=== PATIENT | male | born 1950 | race Caucasian/White ===

== ENCOUNTER → 2016-05-04 | Outpatient (CLI) | payer OTHER ==
[~2016-05-04] MED LIST: ASCO100061 PO; ASPCH81X PO; CHOLTAB3 PO; CIPR-255 PO; CRG3125 PO; CYAN100T PO; GLC500 PO; GLCSR5 PO; LPT40 PO; LSN40 PO; MTRCR45 TOP; MULT-506 PO; OMEG10007 PO
--- NOTE | 2016-05-05 06:48 | SPLIT NIGHT TECHNICIAN REPORT ---
[facility] Split Night Polysomnogram - Hot Saw Helper Report Study date: 05/04/2016 Referring Physician: DR. RODRIGUEZ Name: CHASE TORRES Hot Saw Helper: Britney Sims [facility]. Date of : 1950 Height: 65 years, Height 5' 10.7" Sex: Male Weight: 249 lbs Age: 65 Neck Circum: 18 in BMI: Medications: 35.02 ASPIRIN 81 MG, ATORVASTATIN 40 MG, CARVEDILOL 3.125 MG, CENTRUM SILVER, CHLORTHALIDONE 25 MG, FISH OIL, GLIPIZIDE 5 MG, LISINOPRIL 40 MG, METFORMIN 500 MG, PROSTATE TABS, VICTOZA 18 MG/3 ML Patient History 65 yr-old male here for a baseline/split study. He has had previous sleep testing. He was diagnosed with NGUYỄN and wore CPAP treatment on and off but had some trouble tolerating it. He is back to assess his NGUYỄN and get reinstated with CPAP. CPAP will be started once his AHI exceeds 5 after 2 hours of sleep (per H&P) He took a one-time dose of Zolpidem for the study. The test was started on room air. ETCO2 testing was not utilized during this study. Room 3 Parameters Monitored NPSG: E1-M2, E2-M1, Fp1-M2, Fp2-M1, F3-M2, F4-M2, F4-M1, C3-M2, C4-M2, C4-M1, O1-M2, O2-M2, O2-M1, T3-M2, T4-M1, P3-M2, P4-M1, CHIN1, CHIN2, HR, EKG, Legs, PFLOW, SNOR, FLOW, CFLOW, Tidal Volume, THOR, ABDO, SpO2, PLTH, CPRESS, ETCO2 Wave, ETCO2, pH SLEEP SUMMARY DATA DIAGNOSTIC TREATMENT Lights Out: 10:39:19 PM 1:31:19 AM Lights On: 1:21:49 AM 5:37:49 AM Total Recording Time (TRT): 162.5 min. 246.5 min. Total Sleep Time (TST): 126.5 min. 141.0 min. NREM Time: 126.5 min. 118.0 min. REM Time: 0.0 min. 23.0 min. Sleep Period Time (SPT): 135.5 min. 145.5 min. Sleep Efficiency (SE): 78 % 57 % Sleep Latency: 27.0 min. 87.0 min. Arousal Index: 19.0 9.4 PAP Treatment Levels: 4, 6, 7 * Optimal Pressure(s) SLEEP STAGING DATA DIAGNOSTIC TREATMENT Duration (min) TST % Duration (min) TST % Stage Wake: 36.0 min. -- 105.5 min. -- WASO: 9.0 min. -- 4.5 min. -- NREM: 126.5 min. 100 % 118.0 min. 84 % Stage N1: 15.5 min. 12 % 17.5 min. 12 % Stage N2: 90.0 min. 71 % 97.0 min. 69 % Stage N3: 21.0 min. 17 % 3.5 min. 2 % REM: 0.0 min. 0 % 23.0 min. 16 % POSITIONAL DATA Event Count Index Event Count Index Supine: 28 70.4 0 0.0 Supine NREM: 28 70.4 0 0.0 Supine REM: N/A N/A N/A N/A Non-Supine: 9 4.6 0 0.0 Non-Supine NREM: 9 4.6 0 0.0 Non-Supine REM: N/A N/A 0 0.0 AROUSAL SUMMARY DATA: Event Count Index Event Count Index Apnea Arousals: 0 0.5 0 0.0 Hypopnea Arousals: 10 4.7 0 0.0 Snore Arousals: 0 0.0 6 2.6 PLM Arousals: 14 6.6 7 3.0 Non-Specific Arousals: 11 5.2 8 3.4 Total Arousals: 40 19.0 22 9.4 MYOCLONUS (PLM) Event Count Index Event Count Index PLM: 159 75.4 66 28.1 PLM AROUSAL: 14 6.6 7 3.0 PLM W/O AROUSAL 159 75.4 59 25.1 PLM W/RESP EVENT 22 0.0 0 0.0 MYOCLONUS (PLM) Event Count Index Event Count Index LM: 3 22.3 6 2.6 LM AROUSAL: 3 1.4 1 0.4 LM W/O AROUSAL LM W/RESP EVENT LM NON SPECIFIC 163 77.3 64 27.2 HEART RATE DATA DIAGNOSTIC TREATMENT Sleep (bpm): 91 91 REM (bpm): N/A 88 NREM (bpm): 89 87 Tachycardia Count: 0 0 Tachycardia Duration: 0.00 0 Bradycardia Count: 0 0 Bradycardia Duration: 0.00 0 DIAGNOSTIC PORTION TREATMENT PORTION RESPIRATORY DATA Event Count Index Event Count Index AHI: -- 16.6 -- 0.0 RDI: -- 17.5 -- 0 Obstructive Apnea: 1 0.5 0 0.0 Central Apnea: 0 0.0 0 0.0 Mixed Apnea: 0 0.0 0 0.0 Hypopnea: 34 16.1 0 0.0 RERA: 2 0.9 0 0.0 Total Apneas: 1 0.5 0 0.0 RESPIRATORY DATA REM NREM SLEEP REM NREM SLEEP Supine Position: Obstructive Apneas: N/A 1 1 N/A 0 0 Central Apneas: N/A 0 0 N/A 0 0 Mixed Apneas: N/A 0 0 N/A 0 0 Hypopneas: N/A 26 26 N/A 0 0 RERA N/A 1 1 N/A 0 0 Total Supine Events: N/A 28 28 N/A 0 0 Supine AHI: N/A 70.4 70.4 N/A 0.0 0.0 Supine RDI: N/A 73.0 73.0 N/A 0.0 0.0 REM NREM SLEEP REM NREM SLEEP Non-Supine Position: Obstructive Apneas: N/A 0 0 0 0 0 Central Apneas: N/A 0 0 0 0 0 Mixed Apneas: N/A 0 0 0 0 0 Hypopneas: N/A 8 8 0 0 0 RERA N/A 1 1 0 0 0 Total Supine Events: N/A 9 9 0 0 0 Supine AHI: N/A 4.6 4.6 0.0 0.0 0.0 Supine RDI: N/A 5.2 5.2 0.0 0.0 0.0 OXYGEN DESTAURATION DATA: Event Count Index Event Count Index REM Desaturations: N/A N/A 0 0.0 NREM Desaturations: 42 19.9 4 2.0 SNORE DATA DIAGNOSTIC TREATMENT Snore Time: 26.1 2:58:19 AM Snore TST%: 17 6 Snore Arousal Count: 0 6 Snore Arousal Index: 0.0 2.6 Desaturation Event Summary: Minimum %SpO2 Event Count Mean/Min/Max Duration(sec.) Desaturation Index % Time In Bed > 90 72 24.4 / 4.3 / 59.8 50.0 21.9 86 - 90 29 19.6 / 4.0 / 52.0 5.9 75.2 81 - 85 2 13.6 / 10.8 / 16.5 11.2 2.7 76 - 80 0 N/A 0.0 0.1 71 - 75 0 N/A 0.0 0.0 66 - 70 0 N/A 0.0 0.0 61 - 65 0 N/A 0.0 0.0 56 - 60 0 N/A 0.0 0.0 51 - 55 0 N/A 0.0 0.0 < 50 0 N/A 0.0 0.0 OXYGEN SATURATION DATA DIAGNOSTIC TREATMENT SpO2 Mean Sleep: 89 % 87 % SpO2 Mean REM: N/A % 88 % SpO2 Mean NREM: 89 % 87 % SpO2 Minimum Sleep: 84 % 81 % SpO2 Minimum REM: N/A % 81 % SpO2 Minimum NREM: 84 % 81 % Time Below 90% (TST): 75.6 132.9 Time Below 88% (TST): 4.3 75.1 Total REM NREM Awake <50% 0.0 min. 0.0 min. 0.0 min. 0.0 min. 51 - 60% 0.0 min. 0.0 min. 0.0 min. 0.0 min. 61 - 70% 0.0 min. 0.0 min. 0.0 min. 0.0 min. 71 - 80% 0.4 min. 0.0 min. 0.0 min. 0.4 min. 81 - 90% 306.9 min. 20.3 min. 213.2 min. 73.4 min. 91 - 100% 86.4 min. 0.0 min. 28.3 min. 58.1 min. Average 89 88 88 90 Minimum SpO2 74 81 81 74 Desaturation Event Index 12.0 0.0 11.3 15.3 # Desat. Events below 89% 56 N/A 31 25 Time(%) with Saturation below 89% 49.0 4.7 38.6 5.8 Time(min.) with Saturation below 89% 192.9 18.3 151.8 22.9 Recording Hot Saw Helper Comments: Mr. Torres slept in the left, right, and supine positions. No cardiac arrhythmias were noted. PLMs were noted. No bruxism noted. Snoring was noted and scored as a 3 on a scale of 1 through 5. (0=no snoring, 5=snoring loud enough to be heard through a closed door or down the [address]). At 1:30 am, he met specific Split-Night criteria during the diagnostic portion of this study (per H&P). CPAP was initiated at +4 CMH2O and up-titrated to a level of +7 CMH2O, Cflex 2 which nearly eliminated all respiratory events and snoring. An AirFit P10 nasal pillows mask size medium from [employer] was used during titration. He awoke to use the restroom one time during the night. Mr. Torres stated that he slept about the same as usual. The final report will be interpreted and signed by a sleep physician. The completed physician report will then be placed in the patient medical record. Therapy Event: Therapy (cm H20) 0 4 6 7 Total Time at Pressure (min.) 162.5 10.5 109.8 126.3 TST at Pressure (min.) 126.5 0.0 30.7 110.3 # Periods 1 1 1 1 Sleep Onset (min.) 27.0 N/A 76.5 0.0 REM Onset (min.) N/A N/A N/A 76.8 Sleep Efficiency % 77 0 28 87 Wakefulness (%) 22.2 100.0 72.0 12.7 Wakefulness (min.) 36.0 10.5 79.0 16.0 NREM 1 (%) 9.5 0.0 7.7 7.1 NREM 1 (min.) 15.5 0.0 8.5 9.0 NREM 2 (%) 55.4 0.0 20.3 59.2 NREM 2 (min.) 90.0 0.0 22.2 74.8 NREM 3 (%) 12.9 0.0 0.0 2.8 NREM 3 (min.) 21.0 0.0 0.0 3.5 REM (%) 0.0 0.0 0.0 18.2 REM (min.) 0.0 0.0 0.0 23.0 # Arousals 40 N/A 6 16 Arousal Index 19.0 N/A 11.7 8.7 # Snore 1,610 N/A 185 17 Snore Index 763.6 N/A 361.0 9.3 AHI 16.6 N/A 0.0 0.0 AHI Supine 70.4 N/A 0.0 0.0 AHI Non-Supine 4.6 N/A N/A 0.0 NREM AHI 16.6 N/A 0.0 0.0 REM AHI N/A N/A N/A 0.0 RDI 17.5 N/A 0.0 0.0 # Obstructive 1 N/A 0 0 # Central Ap 0 N/A 0 0 # Mixed 0 N/A 0 0 # Hypopneas 34 N/A 0 0 RERAS 2 N/A 0 0 Total Respiratory Events 37 N/A 0 0 Time Below SpO2 89.00% (min.) 43.6 0.0 26.9 99.5 Mean NREM SpO2 (%) 89 N/A 88 87 Mean REM SpO2 (%) N/A N/A N/A 88 Mean Sleep SpO2 (%) 89 N/A 88 87 Min NREM SpO2 (%) 84 N/A 86 81 Min REM SpO2 (%) N/A N/A N/A 81 Position Supine (min.) 23.0 0.0 30.7 29.8 Position Non-supine (min.) 103.5 0.0 0.0 80.4 LM Index Sleep 97.7 N/A 52.7 24.5 LM Index NREM 97.7 N/A 52.7 21.3 LM Index REM N/A N/A N/A 36.5 Mean Heart Rate (bpm) 91 N/A 94 91 Min Heart Rate (bpm) 85 N/A 90 85 CPAP REPORT Therapy Detail Time / Page # Comment CPAP 4 cm H2O Nasal Pillow Mask Flex Pressure Relief Humidifier on 1:30:39 AM / pg. [phone] (PER THE H&P) HIS AHI WAS OVER 5 AND HE WAS ALSEEP FOR 2 HOURS CPAP 6 cm H2O Nasal Pillow Mask Flex Pressure Relief Humidifier on 1:41:47 AM / pg. 528 INCREASED AT PT'S REQUEST FOR MORE AIRFLOW CPAP 7 cm H2O Nasal Pillow Mask Flex Pressure Relief Humidifier on 3:31:34 AM / pg. [phone] INCREASED FOR SNORING
--- NOTE | 2016-05-06 13:53 | POLYSOMNOGRAPH REPORT ---
CLINICAL DATA: 65-year-old male with BMI of 35 referred by myself and Dr. Payan for a split night study. He had a previous history of sleep apnea and was on CPAP, but had trouble tolerating it. He was given zolpidem to use prior to this study. This was a split night study. SLEEP ARCHITECTURE: For the diagnostic portion of the study, total sleep period was 135.5 minutes. Total sleep time was 126.5 minutes, all non-REM sleep. Sleep onset latency was 27 minutes. Sleep efficiency was 78%. Arousal index was 19. Sleep consisted of stage N1 12%, N2 71%, N3 17%. For the treatment portion of the study, total sleep period was 145.5 minutes. Total sleep time was 141 minutes divided between 118 minutes of non-REM sleep and 23 minutes of REM sleep. Sleep latency was delayed at 87 minutes. Sleep efficiency was 57%. Arousal index of 9.4. Sleep consisted of stage N1 12%, N2 69%, N3 2%, REM 16%. AROUSAL DATA: Prior to treatment, 40 arousals were recorded for an index of 19 per hour. Following treatment, 22 arousals were recorded for an index of 9.4 per hour. PLM DATA: Prior to treatment, 163 limb movements during sleep were noted for an index of 77.3 per hour. Following treatment, 64 limb movements during sleep were noted for an index of 27.2 per hour. EKG: Heart rates ranged from 87-91 beats per minute. No arrhythmias were noted. RESPIRATORY DATA: Prior to treatment, moderate sleep apnea was documented. The AHI was 16.6. The RDI was 17.5. There was 1 obstructive apneic episode, 34 hypopneic episodes, and 2 RERAs recorded. Following treatment the AHI was 0. No respiratory events were recorded. OXIMETRY DATA: Nocturnal hypoxemia was seen. Oxygen ever was 81%. Mean saturation with treatment was 87%. EXERCISE SPECIALIST'S COMMENTS AND TREATMENT SUMMARY: The patient slept in the left, right, and supine positions. Snoring was moderate, rated 3 on a scale of 1-5. At 1:30 a.m., the patient met split night criteria. CPAP was started using an AirFit P10 nasal pillow mask size medium from [employer]. The patient was titrated up to 7 cm of water pressure. At his final pressure setting, the patient slept for 110.3 minutes with an AHI of 0. He continued to have some very mild oxygen desaturation in spite of treatment with CPAP. IMPRESSION: Moderate sleep apnea/hypopnea corrected with CPAP 7 cm of water pressure, C-Flex setting 2, AirFit P10 nasal pillow mask size medium from [employer] with some residual nocturnal hypoxemia. RECOMMENDATIONS: The patient should be started on the above noted treatment regimen. Pulse oximetry on CPAP at home should be considered once the patient has utilized CPAP for a period of time to document whether supplemental oxygen will be needed as well. MARGARET
== END | disposition home or self-care (01) ==
LOC: C.NEUR 21:00
PROVIDERS: ATTEND Internal Medicine Pulmonary Disease
DX: G47.00 Insomnia, unspecified (principal); G47.30 Sleep apnea, unspecified

== ENCOUNTER → 2016-05-11 | Outpatient (CLI) | payer OTHER ==
[~2016-05-11] VITALS: Ht 179.7 cm; Wt 112.6 kg
[2016-05-11 12:30] VITALS: BP 117/82; PULSE 84; Ht 179.7 cm; Wt 112.6 kg
== END | disposition home or self-care (01) ==
LOC: C.NEUR 11:48
PROVIDERS: ATTEND Internal Medicine Pulmonary Disease
DX: G47.33 Obstructive sleep apnea (adult) (pediatric) (principal); G47.34 Idiopathic sleep related nonobstructive alveolar hypoventilation; G47.00 Insomnia, unspecified

== ENCOUNTER → 2016-07-27 | Outpatient (CLI) | payer OTHER ==
[~2016-07-27] VITALS: Ht 179.7 cm; Wt 112.9 kg
[2016-07-27 12:46] VITALS: BP 133/82; PULSE 77; Ht 179.7 cm; Wt 112.9 kg
== END | disposition home or self-care (01) ==
LOC: C.NEUR 12:03
PROVIDERS: ATTEND Internal Medicine Pulmonary Disease
DX: G47.33 Obstructive sleep apnea (adult) (pediatric) (principal)

== ENCOUNTER → 2016-08-03 | Outpatient (CLI) | payer OTHER ==
[2016-08-03 13:16] LABS: ESTIMATED AVERAGE GLUCOSE 143 mg/dl; HA1C FLAG Normal (Normal)
[2016-08-03 13:24] LABS: ALKALINE PHOSPHATASE 52 U/L (45-117); ALT/SGPT 72 U/L (12-78); AST/SGOT 32 U/L (15-37); BLOOD UREA NITROGEN 23 mg/dl (7-18); BUN/CREATININE RATIO 20.6 (10-20); CALCIUM 9.4 mg/dl (8.5-10.1); CARBON DIOXIDE 29 mmol/L (21-32); CHLORIDE 102 mmol/L (98-107); CHOLESTEROL 135 mg/dl (0-200); GLUCOSE 182 mg/dl (70-99); POTASSIUM 4.3 mmol/L (3.5-5.1); SODIUM 137 mmol/L (136-145)
[2016-08-03 13:26] LABS: ALB/GLOB RATIO 1.1 (0.9-2); CHOLESTEROL/HDL RATIO 4.4; HDL CHOLESTEROL 31 mg/dl; LDL CHOLESTEROL CALCULATED 25 mg/dl; TRIGLYCERIDES 395 mg/dl (0-150); VERY LOW DENSITY LIPOPROT CALC 79 mg/dl
--- NOTE | 2016-08-19 07:12 | CODING QUERY NO DIAGNOSIS ---
TREATMENT RENDERED WITHOUT A DIAGNOSIS Dr. Barboza, To promote full compliance with coding requirements relating to patient care, physician participation is requested in all cases of test man uncertainty. Please assist us with providing a diagnosis/symptom for the test(s) below: A diagnosis/symptom was not documented on your Order. A valid diagnosis/symptom is required to bill all insurances. Please remember that we are unable to code a diagnosis of rule out, probable, possible, questionable, or suspected. Tests that require a diagnosis: * CBC W/AUTO DIFF DIAGNOSIS: * CMP DIAGNOSIS: * LIPID PANEL DIAGNOSIS: * GLYCOHEMOGLOBIN A1C DIAGNOSIS: * HA1C RESULT 7.0%-9.0% DIAGNOSIS: DATE OF SERVICE: 08/06/16 Provider Signature: Date: Thank you Ramana Corral [facility] Information Management Once completed, please kindly fax back to [phone] For questions please call [phone]
--- NOTE | 2016-08-19 07:57 | CODING QUERY NO DIAGNOSIS ---
TREATMENT RENDERED WITHOUT A DIAGNOSIS Zamzam SEAN, To promote full compliance with coding requirements relating to patient care, physician participation is requested in all cases of reimbursement auditor uncertainty. Please assist us with providing a diagnosis/symptom for the test(s) below: A diagnosis/symptom was not documented on your Order. A valid diagnosis/symptom is required to bill all insurances. Please remember that we are unable to code a diagnosis of rule out, probable, possible, questionable, or suspected. Tests that require a diagnosis: * VITAMIN D 25 HYDROXY DIAGNOSIS: DATE OF SERVICE: 08/03/16 Provider Signature: Date: Thank you Ramana Corral [facility] Information Management Once completed, please kindly fax back to [phone] For questions please call [phone]
--- NOTE | 2016-08-24 06:39 | CODING QUERY MEDICAL NECESSITY ---
SUPPORTING DIAGNOSIS NEEDED Zamzam SEAN, A supporting diagnosis is required for the test/procedure performed on this patient in order for us to be reimbursed by the patient's insurance. Please provide a supporting diagnosis for the following test/procedure listed below next to the test name along with your signature. *If there is no additional diagnosis for this patient that would support the following test/procedure please document that below next to the test/procedure. Test(s)/Procedure(s) that require a supporting diagnosis: * ([id number]) VITAMIN D ASSAY DIAGNOSIS: DATE OF SERVICE: 08/03/16 Provider Signature: Date: Thank you Ramana Corral [facility] Information Management Once completed, please kindly fax back to [phone] For questions please call [phone]
== END | disposition home or self-care (01) ==
LOC: C.LABPVFM 07:57
PROVIDERS: ATTEND Family Medicine
DX: E78.5 Hyperlipidemia, unspecified (principal); E11.9 Type 2 diabetes mellitus without complications; R97.20 Elevated prostate specific antigen [PSA]; M54.5 Low back pain; R74.8 Abnormal levels of other serum enzymes; E66.9 Obesity, unspecified

== ENCOUNTER → 2016-10-04 | Outpatient (CLI) | payer OTHER | END | disposition home or self-care (01) | LOC: C.LABPVFM 16:02 | PROVIDERS: ATTEND Nurse Practitioner | DX: R39.9 Unspecified symptoms and signs involving the genitourinary system (principal) ==

== ENCOUNTER → 2017-03-29 | Outpatient (CLI) | payer OTHER ==
[~2017-03-29] MED LIST changes: +LISI40TA3 PO; -LSN40 PO
[2017-03-29 13:50] LABS: ALBUMIN 3.9 gm/dl (3.4-5.0); ALT/SGPT 70 U/L (12-78); AST/SGOT 31 U/L (15-37); BLOOD UREA NITROGEN 22 mg/dl (7-18); CALCIUM 9.3 mg/dl (8.5-10.1); CARBON DIOXIDE 28 mmol/L (21-32); CREATININE 1.15 mg/dl (0.60-1.40); GLUCOSE 252 mg/dl (70-99); POTASSIUM 4.5 mmol/L (3.5-5.1); SODIUM 136 mmol/L (136-145); TOTAL PROTEIN 8.1 gm/dl (6.4-8.2)
[2017-03-29 13:51] LABS: ALKALINE PHOSPHATASE 56 U/L (45-117); CHOLESTEROL 176 mg/dl (0-200)
== END | disposition home or self-care (01) ==
LOC: C.LABPVFM 07:41
PROVIDERS: ATTEND Family Medicine
DX: R97.20 Elevated prostate specific antigen [PSA] (principal); N40.1 Benign prostatic hyperplasia with lower urinary tract symptoms; I10 Essential (primary) hypertension; E11.9 Type 2 diabetes mellitus without complications; G47.33 Obstructive sleep apnea (adult) (pediatric); R74.8 Abnormal levels of other serum enzymes

== ENCOUNTER → 2017-08-02 | Outpatient (CLI) | payer OTHER ==
[~2017-08-02] VITALS: Ht 179.7 cm; Wt 112.9 kg
[~2017-08-02] MED LIST changes: -LISI40TA3 PO; +LSN40 PO
[2017-08-02 12:52] VITALS: BP 173/92; PULSE 74; Ht 179.7 cm; Wt 112.9 kg
== END | disposition home or self-care (01) ==
LOC: C.NEUR 11:49
PROVIDERS: ATTEND Physician Assistant Medical
DX: G47.33 Obstructive sleep apnea (adult) (pediatric) (principal); E66.9 Obesity, unspecified; I10 Essential (primary) hypertension